=== PATIENT | male | born 1990 | race Caucasian/White ===

== ENCOUNTER 2019-07-19 12:58 | Emergency (ER) | payer OTHER ==
[~2019-07-19] VITALS: Ht 180.3 cm; Wt 76.1 kg
[2019-07-19] MEDS ORDERED: ACETAMINOPHEN 325 MG TABLET PO ONE (13:45)
[2019-07-19] MEDS ORDERED: KETOROLAC 60 MG/2 ML VIAL IM ONE (13:45)
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
[2019-07-19] MEDS ORDERED: DICL50TA4 PO (14:31)
[2019-07-19] MEDS ORDERED: ACET-2267 PO (14:31)
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
[2019-07-19 15:07] VITALS: BP 131/91
== END 2019-07-19 15:12 | disposition home or self-care (01) ==
LOC: ER FS 13:00
DX: S70.02XA Contusion of left hip, initial encounter (principal); S70.12XA Contusion of left thigh, initial encounter; V49.40XA Driver injured in collision with unspecified motor vehicles in traffic accident, initial encounter
CPT/HCPCS: 73502; 73552; 96372

== ENCOUNTER → 2019-07-24 | Outpatient (CLI) | payer OTHER ==
[~2019-07-24] MED LIST: ACET-2267 PO; DICL50TA4 PO
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
== END ==
LOC: RAD FS 13:13
PROVIDERS: ATTEND Nurse Practitioner
DX: M54.2 Cervicalgia (principal); V89.2XXA Person injured in unspecified motor-vehicle accident, traffic, initial encounter
CPT/HCPCS: 72040; 72072

== ENCOUNTER → 2020-01-22 | Outpatient (CLI) | payer OTHER ==
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
== END ==
LOC: RAD 07:34
PROVIDERS: ATTEND Nurse Practitioner
DX: M54.6 Pain in thoracic spine (principal)
CPT/HCPCS: 72146